=== PATIENT | female | born 1975 | race African-American/Black ===

== ENCOUNTER 2018-04-16 21:34 | Emergency (ER) | payer BC ==
[2018-04-16] MEDS ORDERED: Ibuprofen 800 MG TAB ONE (22:09)
== END 2018-04-16 22:41 | disposition home or self-care (01) ==
LOC: SCSER 21:34
DX: S43.402A Unspecified sprain of left shoulder joint, initial encounter (principal); E66.9 Obesity, unspecified; D64.9 Anemia, unspecified; I10 Essential (primary) hypertension; Z79.899 Other long term (current) drug therapy; X50.1XXA Overexertion from prolonged static or awkward postures, initial encounter
CPT/HCPCS: 99283

== ENCOUNTER 2018-05-04 20:44 | Emergency (ER) | payer BC ==
--- NOTE | 2018-05-04 22:49 | RAD ---
LEFT SHOULDER THREE VIEWS: HISTORY: Pain. COMPARISON: None. FINDINGS: Glenohumeral joint space is preserved. No fracture or dislocation. The visualized left ribs are unr emarkable. IMPRESSION: No fracture or dislocation. POS: [facility]
== END 2018-05-04 21:54 | disposition home or self-care (01) ==
LOC: ERS 20:44
DX: S43.402A Unspecified sprain of left shoulder joint, initial encounter (principal); E66.9 Obesity, unspecified; I10 Essential (primary) hypertension; D64.9 Anemia, unspecified; Z79.899 Other long term (current) drug therapy; X50.0XXA Overexertion from strenuous movement or load, initial encounter; Y99.0 Civilian activity done for income or pay

== ENCOUNTER 2018-11-01 01:54 | Emergency (ER) | payer BC, OTHER ==
[2018-11-01 02:26] LABS: Bilirubin Negative (Negative); Blood, Urine Negative (Negative); Clarity CLEAR (Clear); Glucose, Urine (Dipstick) Negative (Negative); Leukocyte Negative (Negative); Nitrite Negative (Negative); Protein, Urine (Dipstick) Negative (Neg-Trace); pH, Urine 5.5 (5.0-9.0)
[2018-11-01 02:34] LABS: #Eosinphils 0.2 thou/uL (0.0-0.7); #Lymphocytes 2.1 thou/uL (1.20-3.40); #Monocytes 0.7 thou/uL (0.11-0.59); #Neutrophils 3.6 thou/uL (1.40-6.50); %Basophils 0.7 % (0.0-1.0); %Eosinophils 3.2 % (0.0-10.0); %Lymphocytes 31.8 % (21.0-51.0); %Monocytes 10.4 % (0.0-10.0); Hemoglobin 10.8 g/dL (12.0-16.0); Mean Corpuscular HGB CONC 31.3 g/dL (32.0-36.0); Mean Corpuscular Hemoglobin 27.6 pg (27.0-31.0); Mean Corpuscular Volume 88.3 fL (78.0-98.0); Mean Platelet Volume 8.1 fL (7.4-10.4); Platelet Count 302 thou/uL (130-400); RBC Distribution Width 15.1 % (11.5-14.5); Red Blood Cell (RBC) Count 3.92 mill/uL (4.20-5.40); White Blood Cell (WBC) Count 6.6 thou/uL (4.8-10.8)
[2018-11-01 02:54] LABS: ALT (SGPT) 16 U/L (8-55); AST (SGOT) 21 U/L (5-34); Alkaline Phosphatase 65 U/L (40-150); Anion Gap 11 mmol/L (10-20); BUN (Urea Nitrogen) 18 mg/dL (7.0-18.7); Bilirubin, Total 0.7 mg/dL (0.2-1.2); Calc. Creatinine Clearance 0 mL/min (70-130); Calcium 9.6 mg/dL (7.8-10.44); Carbon Dioxide 29 mmol/L (22-29); Chloride 103 mmol/L (98-107); Estimated GFR-MDRD 74; Globulin 3.9 g/dL (2.4-3.5); Glucose 107 mg/dL (70-105); Lipase 28 U/L (8-78); Protein, Total 7.9 g/dL (6.0-8.3); Sodium 139 mmol/L (136-145)
[2018-11-01] MEDS ORDERED: Metoclopramide HCl 10 MG/2 ML VIAL ONE (08:05)
[2018-11-01] MEDS ORDERED: Ketorolac Tromethamine 30 MG/ML VIAL ONE (08:05)
[2018-11-01] MEDS ORDERED: diphenhydrAMINE 50 MG/ML VIAL ONE (08:08)
[2018-11-01 08:23] LABS: Pregnancy Test - Urine (BHCG) Negative (Negative); Pregu Control Background? CLEAR/WHITE (CLR/WHITE); Pregu Control Bar Appear? YES (CONTROL BAR)
== END 2018-11-01 09:41 | disposition home or self-care (01) ==
LOC: ERS 01:54
DX: R51 Headache (principal); D64.9 Anemia, unspecified; I10 Essential (primary) hypertension; Z79.899 Other long term (current) drug therapy; E66.9 Obesity, unspecified
CPT/HCPCS: 36415; 80053; 81003; 81025; 83690; 85025; 96365; 96375; J1200; J1885; J2765

== ENCOUNTER 2019-02-04 09:07 | Emergency (ER) | payer BC ==
--- NOTE | 2019-02-04 10:29 | RAD ---
THREE VIEWS OF THE LEFT ANKLE: COMPARISON: None. HISTORY: Caught foot in door with left foot and ankle pain. FINDINGS: Three views of the left ankle show moderate diffuse soft tissue swelling. No fracture or dislocation are appreciated. No degenerative changes are seen. IMPRESSION: No evidence of acute osseous abnormality. POS: [facility]
--- NOTE | 2019-02-04 10:30 | RAD ---
THREE VIEWS LEFT FOOT: HISTORY: Hit foot in door and crushed toes in door with foot pain. FINDINGS: Three views left foot show no evidence of acute fracture or dislocation. There is diffuse soft tissu e swelling with soft tissue irregularity overlying the dorsal aspect of the 2nd toe. IMPRESSION: No evidence of acute osseous abnormality. POS: [facility]
[2019-02-04] MEDS ORDERED: Ibuprofen 800 MG TAB ONE (10:38)
== END 2019-02-04 10:52 | disposition home or self-care (01) ==
LOC: ERS 09:07
DX: S93.402A Sprain of unspecified ligament of left ankle, initial encounter (principal); I10 Essential (primary) hypertension; Z79.899 Other long term (current) drug therapy; W19.XXXA Unspecified fall, initial encounter

== ENCOUNTER 2022-04-19 12:49 | Outpatient (CLI) | payer BC | END 2022-04-19 12:50 | disposition home or self-care (01) | LOC: BICCT 12:49 | PROVIDERS: ATTEND Chiropractor Neurology | DX: I87.1 Compression of vein (principal) | CPT/HCPCS: 74174; 82565 ==

== ENCOUNTER 2024-04-30 11:44 | Emergency (ER) | payer OTHER ==
[2024-04-30] MEDS ORDERED: Ketorolac Tromethamine 30 MG (1 mL) VIAL ONE (12:17)
== END 2024-04-30 12:36 | disposition home or self-care (01) ==
LOC: ERS 11:44
DX: M54.41 Lumbago with sciatica, right side (principal); I10 Essential (primary) hypertension
CPT/HCPCS: 96372; 99282; J1885

== ENCOUNTER 2024-05-02 03:23 | Emergency (ER) | payer OTHER ==
[2024-05-02] MEDS ORDERED: Ketorolac Tromethamine 30 MG (1 mL) VIAL ONE (05:15)
== END 2024-05-02 05:40 | disposition home or self-care (01) ==
LOC: ERS 03:23
DX: M53.3 Sacrococcygeal disorders, not elsewhere classified (principal); M54.31 Sciatica, right side
CPT/HCPCS: 96372; 99283; J1885